=== PATIENT | male | born 1955 | race Caucasian/White ===

== ENCOUNTER 2018-05-08 12:41 | Outpatient (CLI) | payer BC ==
--- NOTE | 2018-05-08 14:09 | RAD ---
LUMBAR SPINE TWO VIEWS: HISTORY: Radicular pain in the lumbosacral region. Chronic back pain with radiation to both legs. COMPARISON: None. FINDINGS: There is levorotatory scoliosis of the lumbar spine. There are five lumbar type vertebral bodies. V ertebral body height is maintained. No fracture. Mild loss of disk space height in the distal thora cic spine and at the L5-S1 level. IMPRESSION: Leftward rotation of the lumbar spine. No evidence of severe loss of disk space height. POS: CET
--- NOTE | 2018-05-08 14:49 | MRI ---
NONCONTRAST MRI LUMBAR SPINE: DATE: 05/08/2018. HISTORY: Radicular pain of lumbosacral area. The patient states chronic back pain with radiation of pain down both legs for many years. Symptoms occur intermittent. COMPARISON: None available. FINDINGS: The retroperitoneal structures demonstrate a grossly normal nonenhanced MRI appearance. The conus medullaris is normal in appearance and terminates at the T12-L1 level. There are rounded foci of increased T1 and T2 weighted signal intensity seen in the T1 and L3 vertebr al bodies demonstrating characteristics most compatible with hemangiomas, the largest involving the T 12 vertebral body which measures approximately 2 cm. Mild end plate degenerative changes are seen at the L4-5 and L5-S1 levels. T12-L1 level: There is no disk bulge or disk herniation. The central spinal canal and neural forame n are patent. There are mild facet degenerative changes present. L1-2 level: There is a broad-based disk-osteophyte complex which results in effacement of the ventra l aspect of the thecal sac. The neural foramina are patent at this level. L2-3 level: There is a mild disk-osteophyte complex present. There are facet hypertrophic changes. There is mild generalized narrowing of the central spinal canal. Neural foramina are patent. L3-4 level: There is a mild disk-osteophyte complex with facet hypertrophic changes and mild ligamen tous thickening. There is resultant mild narrowing of the central spinal canal. The neural foramina are patent. L4-5 level: There is loss of intervertebral disk height with end plate degenerative change at this l evel. There is a broad-based disk-osteophyte complex and facet hypertrophic changes bilaterally grea ter on the left. Findings result in mild to moderate narrowing of the central spinal canal. There i s mild to moderate right and severe left-sided neural foraminal narrowing. L5-S1 level: There is loss of intervertebral disk height. There is a disk-osteophyte complex and en d plate degenerative changes at this level. There are facet hypertrophic changes bilaterally with se salvador left-sided facet hypertrophic changes present. Findings result in severe left-sided neural fora ronn narrowing with mild right-sided neural foraminal narrowing. The central spinal canal is patent with only slight effacement of the central anterior aspect of the thecal sac at this level. There is mild left convex curvature of the lumbar spine. IMPRESSION: 1. Degenerative changes of the lumbar spine greatest at the L4-5 and L5-S1 levels where there are se salvador degrees of left-sided neural foraminal narrowing related to disk-osteophyte complexes and promin ent facet hypertrophic changes. 2. Left convex scoliosis lumbar spine. POS: YAHAIRA
== END 2018-05-08 12:42 | disposition home or self-care (01) ==
LOC: SCSMRI 12:41
PROVIDERS: ATTEND Family Medicine
DX: M47.27 Other spondylosis with radiculopathy, lumbosacral region (principal); M41.86 Other forms of scoliosis, lumbar region; M25.78 Osteophyte, vertebrae; M48.07 Spinal stenosis, lumbosacral region
CPT/HCPCS: 72100; 72148

== ENCOUNTER 2018-12-29 10:42 | Outpatient (CLI) | payer BC ==
--- NOTE | 2018-12-29 11:03 | RAD ---
EXAM: 3 views of the right shoulder HISTORY: Shoulder pain COMPARISON: None FINDINGS: There is no evidence of acute fracture or dislocation. Moderate joint space narrowing and o steophyte formation is seen in the glenohumeral joint. No soft tissue swelling is seen. The visualized thorax is unremarkable. IMPRESSION: Moderate right shoulder osteoarthritis without evidence of acute osseous abnormality.
== END 2018-12-29 10:43 | disposition home or self-care (01) ==
LOC: SCSRAD 10:42
PROVIDERS: ATTEND Nurse Practitioner Family
DX: M25.511 Pain in right shoulder (principal); M19.011 Primary osteoarthritis, right shoulder

== ENCOUNTER 2019-01-11 08:30 | Outpatient (CLI) | payer BC ==
--- NOTE | 2019-01-11 11:51 | MRI ---
MRI CERVICAL SPINE WITHOUT CONTRAST: Date: 01/11/19 INDICATION: Neck pain. Cervical radiculopathy. FINDINGS: Cervical vertebra maintain height. There is slight anterior wedging at C4 and C5 which appears degene rative. Osteophytes are seen anteriorly from these vertebra. Loss of disc space at C3-4, C4-5, and C5 -6. Slight posterolisthesis at C3-4. Straightening of the lordotic curvature. At C3-4, the broad based disc bulge with spondylosis impinges on and mildly flattens the anterior cor d. There is left foraminal stenosis due to facet and uncinate hypertrophy. At C4-5, disc bulge and spondylosis impinges on and compresses the anterior cord. Bilateral foraminal stenosis, more severe on the right. At C5-6, large disc protrusion and spondylytic change compress the cord. Bilateral foraminal stenosis . These changes result in severe cord compression and central canal stenosis at this level. At C6-7, there is mild disc bulge and spondylosis. The anterior subarachnoid space is preserved. Cord signal appears normal with no evidence of myelomalacia. IMPRESSION: Severe cord compression at C5-6. Moderate cord compression and stenosis at C3-4 and mild to moderate at C4-5. Foraminal stenosis at these levels as described above. POS: YAHAIRA
== END 2019-01-11 08:31 | disposition home or self-care (01) ==
LOC: SCSMRI 08:30
PROVIDERS: ATTEND Orthopaedic Surgery
DX: M47.22 Other spondylosis with radiculopathy, cervical region (principal); M48.02 Spinal stenosis, cervical region
CPT/HCPCS: 72141

== ENCOUNTER 2019-02-10 05:44 | Day surgery (SDC) | payer BC ==
[2019-02-05 09:03] VITALS: BMI 42.7
[2019-02-10] MEDS ORDERED: Clindamycin/D5W 900 mg/50 ml Premix Bag ONE (06:19)
[2019-02-10] MEDS ORDERED: Levofloxacin 500 mg/D5W 100 ml Premix Bag ONE (06:20)
[2019-02-10] MEDS ORDERED: Thrombin 5000 UNITS/5 ML VIAL ONE (06:23)
[2019-02-10] MEDS ORDERED: Fentanyl 100 MCG/2 ML VIAL ONE (07:08)
--- NOTE | 2019-02-10 07:14 | HP ---
HISTORY OF PRESENT ILLNESS: Mr. Salguero is a pleasant 63-year-old gentleman presenting today for progressive course of right upper extremity pain, numbness, and hand weakness. He has an MRI scan performed at [facility], which reveals multilevel cervical spinal disease, most significant between C5-C6 and C6-C7. His pains fit these rather well. He has treated this with injections and physical therapy, but because of the weakness, he was referred to us by Dr. Fernandez. PAST MEDICAL HISTORY: Significant for arthritis, asthma, seasonal allergies, migraine headaches. PAST SURGICAL HISTORY: Bariatric surgery. ALLERGIES: PENICILLIN. CURRENT MEDICATIONS: 1. Gabapentin. 2. Tramadol. 3. Sertraline. 4. Ibuprofen. PHYSICAL EXAMINATION: The patient is alert and oriented x3. Gait is normal. No ataxia. Upper extremity motor exam reveals some intrinsic weakness of the right hand as compared to the left, but otherwise full right upper extremity strength and left upper extremity strength in all movements. ASSESSMENT: Cervical radiculopathy. PLAN: Dr. Mendoza met with the patient, reviewed imaging, and advocated for C5-C7 ACDF. He explained to the patient the risks, benefits, and alternatives to the procedure. The patient expressed understanding and elected to move forward with surgery as discussed. I do believe the patient is mentally competent and capable of making medical decisions for himself. We will move forward with surgery as planned. Job ID: [id number]
[2019-02-10] MEDS ORDERED: PHENYLEPHRINE-NS 100 MCG/ML 10 ML SYRINGE ONE (09:47)
[2019-02-10] MEDS ORDERED: Glycopyrrolate 0.2 MG/ML 5 ML SYRINGE ONE (09:47)
[2019-02-10] MEDS ORDERED: Ketorolac Tromethamine 30 MG/ML VIAL ONE (09:47)
[2019-02-10] MEDS ORDERED: Rocuronium Bromide 10 MG/ML (10ML VIAL) ONE (09:47)
[2019-02-10] MEDS ORDERED: PROPOFOL 200 MG/20 ML VIAL ONE (09:47)
[2019-02-10] MEDS ORDERED: Lidocaine 1% PF 5 ML VIAL ONE (09:47)
[2019-02-10] MEDS ORDERED: Dexamethasone 20 MG/5 ML VIAL ONE (09:47)
[2019-02-10] MEDS ORDERED: Ondansetron PF 4 MG/2 ML Vial ONE (09:47)
[2019-02-10] MEDS ORDERED: Tamsulosin HCl 0.4 MG CAP ONE (10:39)
--- NOTE | 2019-02-10 10:49 | OP ---
DATE OF PROCEDURE: 02/10/2019 [employer] WORKER: Kong Mensah PA-C INDICATION: Pain. DIAGNOSIS: Cervical radiculopathy. PROCEDURE PERFORMED: Anterior cervical diskectomy and fusion, C5 through C7. ANESTHESIA: General. DESCRIPTION OF PROCEDURE: The patient was brought into the operating room and placed under general anesthesia. He was placed on table in a supine position. A transverse incision was planned over the lateral aspect of the neck on the right. After prepping and draping and after an appropriate preoperative pause, the incision was created. The underlying platysma muscle was identified and incised. A blunt tissue plane anterior to the sternocleidomastoid muscle was used to gain access to the prevertebral space. Self-retaining retractors were placed in the wound for optimal exposure. After confirming the appropriate level with C-arm fluoroscopy, an annulotomy was performed at the C6-C7 disk space. All disk material as well as anterior and posterior osteophytes were removed. After decompressing C6-C7, a 7-mm lordotic PEEK cage packed with allograft and autograft material was placed within the interbody space. We then redirected our attention to level at C5-C6, where again an annulotomy was performed. All disk material as well as anterior and posterior osteophytes were removed. After complete decompression at this segment, a 7-mm lordotic PEEK cage packed with allograft and autograft material was placed within the interbody space. An anterior cervical plate was then fashioned to the front of spine and secured with a total of 6 screws. Midline and lateral structures were inspected and found to be free from significant trauma. The wound was irrigated. Hemostasis was maintained throughout. The wound was then closed in anatomic layers and a pressure dressing was applied. There were no known procedural complications. Job ID: [id number]
== END 2019-02-10 12:10 | disposition home or self-care (01) ==
LOC: SDC 05:44
PROVIDERS: ATTEND Neurological Surgery
PROC: 0RG20A0 Fusion of 2 or more Cervical Vertebral Joints with Interbody Fusion Device, Anterior Approach, Anterior Column, Open Approach (ICD-10-PCS; principal; 2019-02-10)
PROC: 0RG2070 Fusion of 2 or more Cervical Vertebral Joints with Autologous Tissue Substitute, Anterior Approach, Anterior Column, Open Approach (ICD-10-PCS; principal; 2019-02-10)
DX: M54.12 Radiculopathy, cervical region (principal); J45.909 Unspecified asthma, uncomplicated; Z88.0 Allergy status to penicillin
CPT/HCPCS: 76000; C1713; C1776; J1100; J1885; J1956; J2001; J2405; J2704; J3010; J3490

== ENCOUNTER 2020-06-15 10:10 | Outpatient (CLI) | payer BC ==
[2020-06-15 12:35] LABS: INR-International Normal Ratio 1.1; Prothrombin Time 11.5 sec (9.5-12.1)
[2020-06-15 18:22] LABS: SARS-CoV-2 PCR by NAA Not Detected (NotDetected)
== END 2020-06-15 10:11 | disposition home or self-care (01) ==
LOC: LABBT 10:10
PROVIDERS: ATTEND Orthopaedic Surgery
DX: Z01.818 Encounter for other preprocedural examination (principal); Z20.822 Contact with and (suspected) exposure to COVID-19
CPT/HCPCS: 85610; 87081; 87635; 93005; 93010; U0003; U0005

== ENCOUNTER 2020-06-20 05:26 | Inpatient (IN) | payer BC ==
[2020-06-16 13:17] VITALS: BMI 42.0
[2020-06-20] MEDS ORDERED: Fentanyl 250 MCG/5 ML VIAL ONE (06:12)
[2020-06-20] MEDS ORDERED: Fentanyl 100 MCG/2 ML VIAL ONE ×3 (06:33→09:48)
[2020-06-20] MEDS ORDERED: Midazolam HCl 2 mg/2 ml Vial ONE (06:33)
[2020-06-20] MEDS ORDERED: Tranexamic Acid 1,000 MG/10 ML VIAL ONE ×2 (06:38→09:35)
[2020-06-20] MEDS ORDERED: Sodium Chloride 0.9% 100 ML ONE (06:39)
[2020-06-20] MEDS ORDERED: VANCOMYCIN 2 GRAM/400 ML BAG 2 GM in Premix Bag 1 BAG IVPB SCH (06:45)
[2020-06-20] MEDS ORDERED: CEFAZOLIN 2 GM in Premix Bag 1 BAG IVPB SCH (06:45)
[2020-06-20] MEDS ORDERED: Tranexamic Acid 1,000 MG in Sodium Chloride 0.9% 100 ML IVPB SCH ×2 (06:45→10:00)
[2020-06-20] MEDS ORDERED: Diazepam 5 MG TAB PO PRN (06:47)
[2020-06-20] MEDS ORDERED: diphenhydrAMINE 25 MG CAP PO PRN ×2 (06:48→08:00)
[2020-06-20] MEDS ORDERED: Promethazine HCl 25 MG/ML VIAL IM PRN ×4 (06:48→10:30)
[2020-06-20] MEDS ORDERED: Zolpidem Tartrate 5 MG TAB PO PRN ×3 (06:48→10:30)
[2020-06-20] MEDS ORDERED: Ondansetron PF 4 MG/2 ML Vial IVP PRN ×3 (06:48→10:30)
[2020-06-20] MEDS ORDERED: Acetaminophen 325 MG TAB PO PRN (06:48)
[2020-06-20] MEDS ORDERED: HYDROcodone/Acetaminophen 10/325 mg Tablet PO PRN ×2 (06:48)
[2020-06-20] MEDS ORDERED: Mometasone 200 MCG/Formoterol 5 MCG 120 PUFF INHALER INH PRN (07:13)
[2020-06-20] MEDS ORDERED: Albuterol Sulfate 1.25 MG/3 ML NEB NEB PRN (07:14)
[2020-06-20] MEDS ORDERED: Lidocaine 1.5% w/Epi 1:200K 30 ML VIAL (Epid Use) ONE (07:21)
[2020-06-20] MEDS ORDERED: PROPOFOL 200 MG/20 ML VIAL ONE (07:21)
[2020-06-20] MEDS ORDERED: Dexamethasone 20 MG/5 ML VIAL ONE (07:21)
[2020-06-20] MEDS ORDERED: Glycopyrrolate 0.2 MG/ML 5 ML SYRINGE ONE (07:21)
[2020-06-20] MEDS ORDERED: Ondansetron PF 4 MG/2 ML Vial ONE (07:21)
[2020-06-20] MEDS ORDERED: Rocuronium Bromide 10 MG/ML (10ML VIAL) ONE (07:21)
[2020-06-20] MEDS ORDERED: Lidocaine 1% PF 5 ML VIAL ONE (07:21)
[2020-06-20] MEDS ORDERED: Ropivacaine 0.2% HCl/PF 20 ML ONE (07:59)
[2020-06-20] MEDS ORDERED: Acetaminophen 500 MG TAB PO PRN (08:00)
[2020-06-20] MEDS ORDERED: Promethazine HCl 25 MG SUPP PR PRN (08:00)
[2020-06-20] MEDS ORDERED: Naloxone HCl 0.4 mg/ml Vial IVP PRN (08:00)
[2020-06-20] MEDS ORDERED: traMADol HCl 50 MG TAB PO PRN ×2 (08:00)
[2020-06-20] MEDS ORDERED: diphenhydrAMINE 50 MG/ML VIAL IM PRN (08:00)
[2020-06-20] MEDS ORDERED: Naloxone HCl 0.4 mg/ml Vial IV PRN ×2 (08:00→10:30)
[2020-06-20] MEDS ORDERED: Fentanyl 5 mcg/Bup 0.075% Cadd 100 ML EPIDURAL SCH (08:00)
[2020-06-20] MEDS ORDERED: HYDROcodone/Acetaminophen 5/325 mg Tablet PO PRN ×2 (08:00)
[2020-06-20] MEDS ORDERED: diphenhydrAMINE 50 MG/ML VIAL IVP PRN (08:00)
[2020-06-20] MEDS ORDERED: Bupivacaine 0.25% 10 ML VIAL EPIDURAL PRN (08:00)
[2020-06-20] MEDS ORDERED: Hydrocerin (Eucerin) Cream 120 gm Jar TOP PRN (08:00)
[2020-06-20] MEDS ORDERED: SUGAMMADEX SODIUM 200 MG/2 ML VIAL ONE (08:43)
[2020-06-20] MEDS ORDERED: Bupivacaine 0.5% 10 ML VIAL ONE (09:16)
[2020-06-20] MEDS ORDERED: Ketorolac Tromethamine 30 MG/ML VIAL ONE (09:48)
[2020-06-20] MEDS: Ketorolac Tromethamine 30 MG/ML VIAL IVP SCH ×2 (09:49→18:29)
[2020-06-20] MEDS ORDERED: Promethazine HCl 25 MG/ML VIAL SLOW IVP PRN (09:52)
[2020-06-20] MEDS ORDERED: HYDROmorphone 2 MG/ML VIAL SLOW IVP PRN (09:52)
[2020-06-20] MEDS ORDERED: Ondansetron HCl/PF 4 MG/2 ML Vial IVP PRN (09:52)
[2020-06-20] MEDS ORDERED: Meperidine HCl/PF 25 MG/ML VIAL SLOW IVP PRN (09:52)
[2020-06-20] MEDS ORDERED: HYDROmorphone 2 MG/ML VIAL ONE (09:55)
[2020-06-20] MEDS ORDERED: HYDROmorphone 10 mg/100 ml CADD IVPB PRN (10:30)
[2020-06-20] MEDS ORDERED: diphenhydrAMINE 50 MG/ML VIAL IM/IV PRN (10:30)
[2020-06-20] MEDS: Aspirin 81 mg Enteric Coated Tablet PO SCH ×2 (15:45→22:05)
[2020-06-20] MEDS: Senokot S 8.6-50 MG TAB PO SCH ×2 (15:45→22:05)
[2020-06-20] MEDS: Multivitamin W/ Minerals 1 TAB PO SCH (15:45)
[2020-06-20] MEDS: CEFAZOLIN 2 GM in Premix Bag 1 BAG IVPB SCH (15:51)
[2020-06-20] MEDS: Sodium Chloride 0.9% 1,000 ML IV SCH (15:51)
[2020-06-21] MEDS: Ketorolac Tromethamine 30 MG/ML VIAL IVP SCH ×4 (00:32→18:24)
[2020-06-21] MEDS: CEFAZOLIN 2 GM in Premix Bag 1 BAG IVPB SCH (00:33)
[2020-06-21] MEDS: Sodium Chloride 0.9% 1,000 ML IV SCH ×2 (01:04→18:46)
[2020-06-21 06:02] LABS: Hemoglobin 12.1 g/dL (14.0-18.0); Mean Corpuscular HGB CONC 32.7 g/dL (32.0-36.0); Mean Corpuscular Hemoglobin 29.2 pg (27.0-31.0); Mean Corpuscular Volume 89.5 fL (78.0-98.0); Platelet Count 263 thou/uL (130-400); RBC Distribution Width 12.6 % (11.5-14.5); Red Blood Cell (RBC) Count 4.13 mill/uL (4.70-6.10); White Blood Cell (WBC) Count 6.9 thou/uL (4.8-10.8)
[2020-06-21] MEDS: Ferrous Gluconate 324 MG TAB PO SCH ×2 (08:15→18:24)
[2020-06-21] MEDS: Senokot S 8.6-50 MG TAB PO SCH ×2 (08:16→20:56)
[2020-06-21] MEDS: Aspirin 81 mg Enteric Coated Tablet PO SCH ×2 (08:16→20:56)
[2020-06-21] MEDS: Multivitamin W/ Minerals 1 TAB PO SCH (08:16)
[2020-06-21] MEDS: diphenhydrAMINE 25 MG CAP PO PRN (18:24)
[2020-06-21] MEDS: guaiFENesin/DM ER PO SCH (20:56)
[2020-06-22] MEDS: Ketorolac Tromethamine 30 MG/ML VIAL IVP SCH ×2 (00:19→05:34)
[2020-06-22] MEDS: Sodium Chloride 0.9% 1,000 ML IV SCH ×2 (00:47→08:17)
[2020-06-22] MEDS: diphenhydrAMINE 25 MG CAP PO PRN (03:39)
[2020-06-22 03:46] VITALS: TEMP 98.3
[2020-06-22 07:49] VITALS: BP 152/89
[2020-06-22] MEDS: Multivitamin W/ Minerals 1 TAB PO SCH (08:15)
[2020-06-22] MEDS: Ferrous Gluconate 324 MG TAB PO SCH (08:16)
[2020-06-22] MEDS: Aspirin 81 mg Enteric Coated Tablet PO SCH (08:16)
[2020-06-22] MEDS: Senokot S 8.6-50 MG TAB PO SCH (08:16)
[2020-06-22] MEDS: guaiFENesin/DM ER PO SCH (08:16)
== END 2020-06-22 13:15 | disposition home or self-care (01) | DRG 470 ==
LOC: SURG A 05:26 → SJJU 15:22
PROVIDERS: ADMIT Orthopaedic Surgery; ATTEND Orthopaedic Surgery
PROC: 0SR9039 Replacement of Right Hip Joint with Ceramic Synthetic Substitute, Cemented, Open Approach (ICD-10-PCS; principal; 2020-06-20)
DX: M16.11 Unilateral primary osteoarthritis, right hip (principal); Z68.41 Body mass index [BMI] 40.0-44.9, adult; J45.909 Unspecified asthma, uncomplicated; Z20.822 Contact with and (suspected) exposure to COVID-19; I10 Essential (primary) hypertension; E66.01 Morbid (severe) obesity due to excess calories; F41.9 Anxiety disorder, unspecified; F32.9 Major depressive disorder, single episode, unspecified; N40.0 Benign prostatic hyperplasia without lower urinary tract symptoms; G47.30 Sleep apnea, unspecified; Z79.899 Other long term (current) drug therapy
CPT/HCPCS: 36415; 85027; J0690; J1100; J1170; J1885; J2001; J2250; J2405; J2704; J2795; J3010; J3490; Q0163

== ENCOUNTER 2020-10-12 11:41 | Outpatient (CLI) | payer BC ==
[2020-10-12 12:49] LABS: #Eosinphils 0.3 10x3/uL (0.0-0.5); #Monocytes 0.4 10x3/uL (0.0-1.1); %Basophils 0.6 % (0.0-2.0); %Eosinophils 5.1 % (0.0-6.0); %Lymphocytes 27.8 % (18.0-47.0); %Monocytes 7.4 % (0.0-10.0); %Neutrophils 58.9 % (40.0-75.0); Hemoglobin 13.1 g/dL (13.5-17.5); Mean Corpuscular HGB CONC 32.8 g/dL (32.0-36.0); Mean Corpuscular Hemoglobin 27.4 pg (27.0-33.0); Mean Corpuscular Volume 83.7 fl (81.2-95.1); Mean Platelet Volume 8.9 fl (7.4-10.4); Platelet Count 280 10x3/uL (150-450); RBC Distribution Width 15.2 % (11.5-14.5); Red Blood Cell (RBC) Count 4.78 10x6/uL (4.32-5.72); White Blood Cell (WBC) Count 5.1 10x3/uL (3.5-10.5)
[2020-10-12 13:05] LABS: Anion Gap 13 mmol/L (10-20); BUN (Urea Nitrogen) 12 mg/dL (8.4-25.7); Calc. Creatinine Clearance 0 mL/min (70-130); Calcium 9.1 mg/dL (7.8-10.44); Carbon Dioxide 22 mmol/L (23-31); Chloride 110 mmol/L (98-107); Glucose 94 mg/dL (80-115); Potassium 4.2 mmol/L (3.5-5.1); Sodium 141 mmol/L (136-145)
[2020-10-12 13:09] LABS: INR-International Normal Ratio 1.1; Prothrombin Time 11.6 sec (9.5-12.1)
== END 2020-10-12 11:42 | disposition home or self-care (01) ==
LOC: LABBT 11:41
PROVIDERS: ATTEND Orthopaedic Surgery
DX: Z01.812 Encounter for preprocedural laboratory examination (principal); M16.12 Unilateral primary osteoarthritis, left hip
CPT/HCPCS: 80048; 82306; 85025; 85610; 87081

== ENCOUNTER 2020-11-02 13:39 | Observation (INO) | payer BC ==
[2020-11-02] MEDS ORDERED: VANCOMYCIN 2 GRAM/400 ML BAG 2 GM in Premix Bag 1 BAG IVPB SCH (15:00)
[2020-11-02] MEDS ORDERED: Fentanyl 100 MCG/2 ML VIAL ONE ×5 (16:33→19:46)
[2020-11-02] MEDS ORDERED: Midazolam HCl 2 mg/2 ml Vial ONE (16:44)
[2020-11-02] MEDS ORDERED: Dexamethasone 20 MG/5 ML VIAL ONE (17:25)
[2020-11-02] MEDS ORDERED: Glycopyrrolate 0.2 MG/ML 5 ML SYRINGE ONE (17:25)
[2020-11-02] MEDS ORDERED: Rocuronium Bromide 10 MG/ML (10ML VIAL) ONE (17:25)
[2020-11-02] MEDS ORDERED: Ondansetron PF 4 MG/2 ML Vial ONE (17:25)
[2020-11-02] MEDS ORDERED: PROPOFOL 200 MG/20 ML VIAL ONE (17:25)
[2020-11-02] MEDS ORDERED: Lidocaine 1% PF 5 ML VIAL ONE (17:25)
[2020-11-02] MEDS ORDERED: Ondansetron ODT 4 MG TAB PO PRN (18:31)
[2020-11-02] MEDS ORDERED: HYDROcodone/Acetaminophen 10/325 mg Tablet PO PRN ×3 (18:31→18:35)
[2020-11-02] MEDS ORDERED: Non-Formulary Item 1 EACH (Fluticasone/Salmeterol [Advair Diskus 250/50] 1 EACH Blst.W.De INH PRN (18:35)
[2020-11-02] MEDS ORDERED: Diazepam 5 MG TAB PO PRN (18:35)
[2020-11-02] MEDS ORDERED: Levalbuterol HCl 0.63 MG/3 ML NEB NEB PRN (18:35)
[2020-11-02] MEDS ORDERED: Ondansetron HCl/PF 4 MG/2 ML Vial IVP PRN (18:41)
[2020-11-02] MEDS ORDERED: HYDROmorphone 2 MG/ML VIAL SLOW IVP PRN (18:41)
[2020-11-02] MEDS ORDERED: Promethazine HCl 25 MG/ML VIAL IVPB PRN (18:41)
[2020-11-02] MEDS ORDERED: Meperidine HCl/PF 25 MG/ML VIAL SLOW IVP PRN (18:41)
[2020-11-02] MEDS ORDERED: Aspirin 81 mg Enteric Coated Tablet PO SCH (18:45)
[2020-11-02] MEDS ORDERED: HYDROmorphone 0.5 MG/0.5 ML SYRINGE ONE (19:05)
[2020-11-02] MEDS ORDERED: Albuterol Sulfate 2.5 mg/3 ml Neb NEB PRN (19:21)
[2020-11-02 20:30] VITALS: BMI 42.1
[2020-11-02] MEDS ORDERED: CEFAZOLIN 2 GM in Premix Bag 1 BAG IVPB SCH (22:00)
[2020-11-02] MEDS: Sodium Chloride 0.9% 1,000 ML IV SCH (22:30)
[2020-11-03] MEDS: CEFAZOLIN 2 GM in Premix Bag 1 BAG IVPB SCH ×2 (02:21→09:55)
[2020-11-03] MEDS: Sodium Chloride 0.9% 1,000 ML IV SCH (02:28)
[2020-11-03] MEDS ORDERED: VANCOMYCIN 2 GRAM/400 ML BAG 2 GM in Premix Bag 1 BAG IVPB SCH (06:00)
[2020-11-03] MEDS ORDERED: Aspirin 81 mg Enteric Coated Tablet PO SCH (09:00)
[2020-11-03 11:55] VITALS: BP 166/94; TEMP 97.6
== END 2020-11-03 13:05 | disposition home or self-care (01) ==
LOC: SDC 13:39 → SURG A 18:37
PROVIDERS: ADMIT Orthopaedic Surgery; ATTEND Orthopaedic Surgery
PROC: 0JCM0ZZ Extirpation of Matter from Left Upper Leg Subcutaneous Tissue and Fascia, Open Approach (ICD-10-PCS; principal; 2020-11-02)
DX: S70.02XA Contusion of left hip, initial encounter (principal); J45.909 Unspecified asthma, uncomplicated; N40.0 Benign prostatic hyperplasia without lower urinary tract symptoms; G43.909 Migraine, unspecified, not intractable, without status migrainosus; G47.33 Obstructive sleep apnea (adult) (pediatric); Z96.641 Presence of right artificial hip joint; Z88.0 Allergy status to penicillin; Z91.048 Other nonmedicinal substance allergy status; Z79.82 Long term (current) use of aspirin; Z79.899 Other long term (current) drug therapy; Z98.1 Arthrodesis status; Z98.84 Bariatric surgery status; X58.XXXA Exposure to other specified factors, initial encounter
CPT/HCPCS: 87070; 87077; 87186; 87205; 96365; 96366; 96367; G0378; J0690; J1100; J1170; J2250; J2405; J2704; J3010; J3370; J7620

== ENCOUNTER 2022-03-28 09:04 | Outpatient (CLI) | payer MEDICARE, BC | END 2022-03-28 09:05 | disposition home or self-care (01) | LOC: CT 09:04 | PROVIDERS: ATTEND Family Medicine | DX: R19.00 Intra-abdominal and pelvic swelling, mass and lump, unspecified site (principal); N28.1 Cyst of kidney, acquired | CPT/HCPCS: 74160; 82565 ==